=== PATIENT | male | born 1990 | race Caucasian/White ===

== ENCOUNTER 2016-09-24 12:14 | Emergency (ER) | payer OTHER ==
[~2016-09-24] VITALS: Ht 185.4 cm; Wt 81.8 kg
[2016-09-24 12:20] VITALS: BP 153/98; TEMP 98.7
[2016-09-24] MEDS ORDERED: VITAMINC1000TA PO (12:22)
[2016-09-24] MEDS ORDERED: MULTI VITAMINS1 TAB PO (12:22)
[2016-09-24] MEDS ORDERED: PRILOSEC 20MG20 MG PO (12:22)
[2016-09-24] MEDS ORDERED: FLEXERIL 1010 MG/TAB PO (13:00)
[2016-09-24 13:05] VITALS: PULSE 92
== END 2016-09-24 13:05 | disposition home or self-care (01) ==
LOC: COL.ER 12:14
DX: S60.812A Abrasion of left wrist, initial encounter (principal); V43.52XA Car driver injured in collision with other type car in traffic accident, initial encounter; Y92.410 Unspecified street and highway as the place of occurrence of the external cause